=== PATIENT | male | born 2000 | race Caucasian/White ===

== ENCOUNTER 2024-02-29 15:46 | Emergency (ER) | payer SELFPAY ==
[2024-02-29] MEDS: Lidocaine 2% Viscous Solution 15 ML UD PO ONE (17:35)
[2024-02-29] MEDS: Benzocaine 20% Topical Spray UD MUCMEM ONE (17:35)
[2024-02-29] MEDS: Amoxicillin/Clavulanate K 875-125 MG Tab PO ONE (17:36)
[2024-02-29] MEDS: Acetaminophen/oxyCODONE 325-5 MG Tab PO ONE (17:36)
== END 2024-02-29 18:25 | disposition home or self-care (01) ==
LOC: MW.ED 15:46
DX: K08.89 Other specified disorders of teeth and supporting structures (principal); H53.8 Other visual disturbances; H66.93 Otitis media, unspecified, bilateral; F17.210 Nicotine dependence, cigarettes, uncomplicated; Z75.8 Other problems related to medical facilities and other health care
CPT/HCPCS: 82947; 99284; A9270

== ENCOUNTER 2024-12-15 18:10 | Emergency (ER) | payer OTHER ==
[2024-12-15] MEDS: Ondansetron 4 MG Tab.DIS PO ONE (18:43)
[2024-12-15] MEDS: Acetaminophen/HYDROcodone 325-10 MG Tab PO ONE (18:43)
== END 2024-12-15 20:34 | disposition home or self-care (01) ==
LOC: MW.ED 18:10
DX: S60.211A Contusion of right wrist, initial encounter (principal); W22.8XXA Striking against or struck by other objects, initial encounter
CPT/HCPCS: 73110; 73130; 99283; A9270; 99284